=== PATIENT | female | born 1935 | race Caucasian/White ===

== ENCOUNTER 2017-06-04 13:57 | Inpatient (IN) | payer OTHER ==
[~2017-06-04] VITALS: Ht 160 cm; Wt 79.4 kg
[~2017-06-04 13:57] MED LIST: AMOXICILLIN500 M1 PO; NORVASC10 MG PO; ST. JOSEPH ASPI81 M1 PO; VOLTAREN GEL 1100 G2 TOP
[2017-06-04 14:06] VITALS: BP 133/69
[2017-06-04] MEDS ORDERED: DICLOFENAC SODI25 MG PO (14:10)
[2017-06-04] MEDS ORDERED: AVALIDE 150-121 EACH PO (14:11)
[2017-06-04 15:03] LABS: ABSOLUTE EOSINOPHILS 0.1 thou/uL (0.0-0.7); ABSOLUTE LYMPHOCYTES 2.4 thou/uL (0.8-5.3); ABSOLUTE MONOCYTES 1.3 thou/uL (0.0-1.2); ABSOLUTE NEUTROPHILS 8.6 thou/uL (1.6-8.1); BASOPHILS 0.4 %; EOSINOPHILS 1.2 %; HEMATOCRIT 39.1 % (37.0-47.0); HEMOGLOBIN 13.1 gm/dL (12.0-15.0); LYMPHOCYTES 19.1 %; MCH 32.9 pg (26.0-34.0); MCHC 33.6 g/dL (28.0-37.0); MONOCYTES 10.4 %; MPV 8.1 fl. (7.2-11.1); NUCLEATED RBCS 0 /100WBC; PLATELET COUNT* 386 thou/uL (150-400); POLYS 68.9 %; RBC 3.99 mil/uL (4.20-5.00); WBC 12.4 thou/uL (4.0-11.0)
[2017-06-04 15:08] LABS: ANION GAP 11 mmol/L (7-16); BUN 28 mg/dL (7-18); CALCIUM 9.8 mg/dL (8.5-10.1); CHLORIDE 95 mmol/L (98-107); CO2 24 mmol/L (21-32); CREATININE 1.1 mg/dL (0.6-1.3); GLUCOSE 172 mg/dL (70-99); POTASSIUM 3.6 mmol/L (3.5-5.1); SODIUM 130 mmol/L (136-145)
[2017-06-04 15:13] LABS: APTT 27.6 Seconds (25.0-31.3); INR 1.1; PROTIME 10.3 Seconds (9.20-11.50)
[2017-06-04 15:19] LABS: ALBUMIN 3.3 g/dL (3.4-5.0); ALKALINE PHOSPHATASE 49 U/L (46-116); LIPASE 187 U/L (73-393); NT-PRO BRAIN NAT PEPTIDE 74 pg/mL (<300); SGOT 17 U/L (15-37); SGPT 25 U/L (30-65); TOTAL BILIRUBIN 0.5 mg/dL (<0.1-1.0); TROPONIN-I LEVEL <0.06 ng/mL (<0.06)
--- NOTE | 2017-06-04 16:43 | EKG ---
[place] [address] ELECTROCARDIOGRAM REPORT Name: VIKAS CHRISTENSEN Room: [facility]#: [id number] Admission: 06/04/17 Attend Phys: Discharge: Date of : 37 Report #: [id number] THIS REPORT FOR: //name// [facility] ED Test Date: 2017-06-04 Test Time: 14:03:16 Pat Name: VIKAS CHRISTENSEN Department: Room: Gender: F Glass Glazier: : 1935 Requested By: Alexsandra Desai Order Number: [id number] MD: Jett Manning Measurements Intervals [place] Rate: 76 P: 21 ID: 140 QRS: -45 QRSD: 97 T: 34 QT: 435 QTc: 490 Interpretive Statements Sinus rhythm Left anterior fascicular block Low voltage, precordial leads RSR' in V1 or V2, right VCD or RVH Borderline prolonged QT interval No previous ECG available for comparison Electronically Signed On 06-04-2017 16:42:46 CDT by Jett Manning [email or web address] <ELECTRONICALLY SIGNED> By: Jett Manning MD, [facility] 06/04/17 5227 1403 1403 Jett Manning MD, [facility] /EPI
[2017-06-04 20:11] VITALS: BP 127/77
[2017-06-05] VITALS (30 sets, daily range): BP systolic 74–165; BP diastolic 42–85
[2017-06-05 01:23] LABS: BE -4.8 mmol/L (-2 to +3); HCO3 19.8 mmol/L (22.0-26.0); PCO2 35.5 mmHg (35.0-45.0); pH 7.365 (7.340-7.450)
[2017-06-05 01:25] LABS: PO2 135.5 mmHg (75.0-100.0)
[2017-06-05 07:42] LABS: HEMATOCRIT 34.2 % (37.0-47.0); HEMOGLOBIN 11.6 gm/dL (12.0-15.0); MCH 33.7 pg (26.0-34.0); MCV 99.2 fL (80.0-100.0); MPV 7.6 fl. (7.2-11.1); RBC 3.45 mil/uL (4.20-5.00); RDW-CV 13.9 % (10.5-14.5); WBC 11.2 thou/uL (4.0-11.0)
[2017-06-05 07:57] LABS: BE -2.9 mmol/L (-2 to +3); HCO3 20.6 mmol/L (22.0-26.0); PCO2 32.2 mmHg (35.0-45.0); PO2 75.9 mmHg (75.0-100.0); pH 7.424 (7.340-7.450)
[2017-06-05 08:15] LABS: ALBUMIN 2.2 g/dL (3.4-5.0); CREATININE 0.8 mg/dL (0.6-1.3); MAGNESIUM 1.6 mg/dL (1.8-2.4); PHOSPHORUS* 3.5 mg/dL (2.5-4.9); POTASSIUM 4.2 mmol/L (3.5-5.1); TOTAL BILIRUBIN 0.6 mg/dL (<0.1-1.0); TOTAL PROTEIN 4.8 g/dL (6.4-8.2)
[2017-06-05 08:17] LABS: CALCIUM 7.8 mg/dL (8.5-10.1)
[2017-06-05] MEDS ORDERED: ASPIR 8181 MG PO (08:44)
[2017-06-06] VITALS (19 sets, daily range): BP systolic 90–133; BP diastolic 49–78
[2017-06-06 03:03] LABS: HEMATOCRIT 37.8 % (37.0-47.0); HEMOGLOBIN 12.6 gm/dL (12.0-15.0); MCH 33.1 pg (26.0-34.0); MCHC 33.4 g/dL (28.0-37.0); NUCLEATED RBCS 0 /100WBC; RBC 3.81 mil/uL (4.20-5.00); RDW-CV 14.2 % (10.5-14.5); WBC 17.5 thou/uL (4.0-11.0)
[2017-06-06 03:05] LABS: PLATELET COUNT* 477 thou/uL (150-400)
[2017-06-06 03:08] LABS: PREALBUMIN 17.4 mg/dL (18.0-35.7)
[2017-06-06 03:14] LABS: ALBUMIN 2.1 g/dL (3.4-5.0); CREATININE 0.9 mg/dL (0.6-1.3); MAGNESIUM 1.7 mg/dL (1.8-2.4); POTASSIUM 3.4 mmol/L (3.5-5.1); TOTAL BILIRUBIN 0.7 mg/dL (<0.1-1.0); TOTAL PROTEIN 5.7 g/dL (6.4-8.2)
[2017-06-06 04:13] LABS: ABSOLUTE LYMPHOCYTES 1.8 thou/uL (0.8-5.3); ABSOLUTE MONOCYTES 0.9 thou/uL (0.0-1.2); ABSOLUTE NEUTROPHILS 14.9 thou/uL (1.6-8.1); PLATELET ESTIMATE INCREASED
[2017-06-06 04:18] LABS: BE -4.1 mmol/L (-2 to +3); HCO3 17.3 mmol/L (22.0-26.0); PCO2 23.1 mmHg (35.0-45.0); PO2 101.5 mmHg (75.0-100.0); pH 7.492 (7.340-7.450)
[2017-06-06 09:23] LABS: BE -3.2 mmol/L (-2 to +3); HCO3 21.1 mmol/L (22.0-26.0); PCO2 35.5 mmHg (35.0-45.0); PO2 81.6 mmHg (75.0-100.0); pH 7.392 (7.340-7.450)
--- NOTE | 2017-06-06 12:58 | CON ---
[address] [address] CONSULTATION Name: VIKAS CHRISTENSEN Room: [address] ADM IN M.R.#: [id number] Admission: 06/05/17 Attend Phys: Odette Pulliam Discharge: Date of : 37 Report #: [id number] THIS REPORT FOR: //name// CC: Riley Archer DATE OF SERVICE: 06/05/2017 ATTENDING PHYSICIAN: Leatha Archer MD REASON FOR EVALUATION: Recommendations for antimicrobial therapy in patient with a perforated duodenal ulcer complicated by multiorgan dysfunction, peritonitis. HISTORY OF PRESENT ILLNESS: Chart reviewed, patient examined. This 82-year-old with history of hypertension, fairly regular ethanol use, apparently presented to the Emergency Room with complaints of upper abdominal pain, became quite severe over the last hours prior to her admission and also complained of dyspnea. Evaluation including imaging, which showed pneumoperitoneum, large paraesophageal hernia and suspected duodenal perforation. This was confirmed at surgery. She underwent exploratory laparotomy, reduction of hiatal hernia, resection of gastric antrum with a Billroth II reconstruction and washout of the abdomen. She was left open as a wound VAC in place, 2 Len-Gonzalez drains. She is sedated, maintained on ventilatory support with some norepinephrine as well. She is tentatively scheduled to go back later today for primary closure. Empirically started on therapy with metronidazole, piperacillin/tazobactam and also on cefazolin as well. ALLERGIES: None known. CURRENT MEDICINES: Include enoxaparin, ipratropium and albuterol inhaler, fentanyl, norepinephrine, propofol, metronidazole, cefazolin, Zosyn. PAST MEDICAL HISTORY: As described above, history of arthritis, osteoporosis, previous bilateral knee replacement, hysterectomy. SOCIAL HISTORY: Former smoker. Regular ethanol use. FAMILY HISTORY: Noncontributory. REVIEW OF SYSTEMS: Not obtainable. PHYSICAL EXAMINATION: GENERAL: She is sedated and maintained on the vent in supine position, has multiple tubes and drains in place, appears somewhat chronically ill. VITAL SIGNS: Temperature 98.4, pulse 71, respirations 20, blood pressure 93/44. [place] [address] CONSULTATION Name: VIKAS CHRISTENSEN Room: [address] IN [facility].#: [id number] Admission: 06/05/17 Attend Phys: Odette Pulliam Discharge: Date of : 37 Report #: [id number] SKIN: Warm, dry, no rashes. NECK: Apparently supple. LUNGS: Diminished breath sounds. HEART: Regular. I do not appreciate any murmur. ABDOMEN: Distended, firm. Wound VAC in place, upper portion. Bilateral MARCELA drains. GENITOURINARY: Deferred. RECTAL: Deferred. LABORATORY DATA: Initial CBC: White count of 12.4, H and H 13.1 and 39.1, platelets of 386. Repeat this morning, white count 11.2, H and H 11.6 and 34.2, platelets of 270. PT of 10.3, INR of 1.1. Electrolytes: Sodium 130, potassium 3.6, chloride 95, bicarbonate is 24, anion gap of 11, BUN and creatinine 28 and 1.1, glucose of 172. LFTs unremarkable. Albumin 3.3, total protein 7.0. Estimated GFR of 48. Chest x-ray: Diaphragmatic hernia is noted, normal heart size, some basilar atelectasis on the left. CTA chest PE protocol: Free air in the upper abdomen, no evidence of PE. CT abdomen and pelvis confirmed noted large hiatal hernia. ABGs: A pH 7.365, pCO2 of 35.5, pO2 of 135.5, is on FiO2 of 100%. Cultures pending. Many wbc's, no organisms seen. ASSESSMENT: Peritonitis secondary to perforated duodenal ulcer with organ dysfunction. We will continue empiric therapy. I think we can pare down at this point. Thus with antibacterials, given a single dose fluconazole, pending the results. Noted plans to continue with additional therapy, likely will stay on the vent at least overnight. We will monitor expectantly, certainly at risk for infectious complication. <ELECTRONICALLY SIGNED> By: Gilmar Leonardo MD 06/06/17 1258 1558 1910Joabraham Leonardo MD /nt
[2017-06-07] VITALS (18 sets, daily range): BP systolic 79–116; BP diastolic 51–66
[2017-06-07 04:54] LABS: ABSOLUTE EOSINOPHILS 0.1 thou/uL (0.0-0.7); ABSOLUTE LYMPHOCYTES 0.8 thou/uL (0.8-5.3); ABSOLUTE MONOCYTES 1.2 thou/uL (0.0-1.2); ABSOLUTE NEUTROPHILS 10.7 thou/uL (1.6-8.1); BASOPHILS 0.2 %; EOSINOPHILS 0.7 %; HEMATOCRIT 29.3 % (37.0-47.0); LYMPHOCYTES 6.4 %; MCH 33.4 pg (26.0-34.0); MCHC 33.3 g/dL (28.0-37.0); MCV 100.3 fL (80.0-100.0); MONOCYTES 9.2 %; MPV 7.8 fl. (7.2-11.1); NUCLEATED RBCS 0 /100WBC; POLYS 83.5 %; RBC 2.92 mil/uL (4.20-5.00); RDW-CV 14.3 % (10.5-14.5); WBC 12.8 thou/uL (4.0-11.0)
[2017-06-07 04:55] LABS: HEMOGLOBIN 9.8 gm/dL (12.0-15.0); PLATELET COUNT* 296 thou/uL (150-400)
[2017-06-07 05:35] LABS: PREALBUMIN 13.6 mg/dL (18.0-35.7)
[2017-06-07 05:56] LABS: HCO3 23.1 mmol/L (22.0-26.0); PCO2 36.1 mmHg (35.0-45.0); pH 7.424 (7.340-7.450)
[2017-06-07 06:30] LABS: ALBUMIN 1.7 g/dL (3.4-5.0); CALCIUM 7.4 mg/dL (8.5-10.1); CREATININE 0.9 mg/dL (0.6-1.3); MAGNESIUM 1.8 mg/dL (1.8-2.4); PHOSPHORUS* 2.5 mg/dL (2.5-4.9); POTASSIUM 3.8 mmol/L (3.5-5.1); TOTAL BILIRUBIN 0.5 mg/dL (<0.1-1.0); TOTAL PROTEIN 4.5 g/dL (6.4-8.2)
--- NOTE | 2017-06-07 08:14 | CON ---
[address] [address] CONSULTATION Name: VIKAS CHRISTENSEN Room: [address] ADM IN M.R.#: [id number] Admission: 06/05/17 Attend Phys: Odette Pulliam Discharge: Date of : 37 Report #: [id number] THIS REPORT FOR: //name// CC: Riley Archer DATE OF SERVICE: 06/05/2017 REASON FOR CONSULTATION: Respiratory failure. HISTORY OF PRESENT ILLNESS: This is an 82-year-old female patient who was admitted through the Emergency Room on 06/04/2017 with a chief complaint of abdominal pain. The patient was intubated, on sedation, at the time of my evaluation, did not participate in the history, but I reviewed the medical records. Apparently, she reported abdominal pain and chest pain that started early on the day of hospitalization. The pain was radiating to her chest and according to the records, it was severe pain, never had it before, associated with decreased appetite for the last 1 week, although she did not have any vomiting, but she had some nausea and she takes diclofenac for arthritis. Also, there is reported increased alcohol intake, 3-4 alcoholic beverages per day. Her evaluation in the ER showed pneumoperitoneum. She was taken to the OR and actually was found to have perforated proximal large duodenal ulcer with reducible hiatal hernia and underwent exploratory laparotomy, reduction of the hernia, washout of the abdomen. She continues to be intubated and the plan is to take her back to the OR for further washout. She still has a wound VAC in place and she has drainage catheter in her abdomen. She is currently on propofol and fentanyl. However, she is being changed to Versed and fentanyl for sedation. ALLERGIES: Per record, no known drug allergies. HOME MEDICATIONS: She is on amlodipine, diclofenac and . SOCIAL HISTORY: Although she drinks alcohol daily 3-4 drinks per day, but she does not smoke, although she has a previous history of smoking. PAST MEDICAL HISTORY: Include hypertension and alcohol abuse. PAST SURGICAL HISTORY: Hysterectomy and total knee replacement. REVIEW OF SYSTEMS: At this point, not obtainable. She is intubated and sedated. PHYSICAL EXAMINATION: VITAL SIGNS: Her blood pressure 93/49, she is off vasopressors; [place] [address] CONSULTATION Name: VIKAS CHRISTENSEN Room: [address] IN [facility]#: [id number] Admission: 06/05/17 Attend Phys: Odette Pulliam Discharge: Date of : 37 Report #: [id number] rate 21; pulse rate of 75. She is afebrile. GENERAL: Intubated, sedated, although she is on sedation, but she opens her eyes when stimulated. Pupils equal, reactive to light. No jaundice. External ear looks healthy and normal. ORAL CAVITY: Moist mucous membrane with ET tube in place. NECK: Supple. Full range of movement she is moving her head. CHEST: Air movement heard bilaterally with some crackles at the bases. No definite wheezes. HEART: S1, S2; no murmur. ABDOMEN: Postoperative with a wound VAC, sluggish bowel sounds. Left lower quadrant drainage catheter. No masses felt. EXTREMITIES: Lower extremities, no edema noted. No calf tenderness. PSYCHIATRIC: Mood and affect could not be evaluated. LYMPHATICS: No palpable lymph node. SKIN: Normal for age and race. No rash. LABORATORY DATA: She has multiple imaging including CT of the chest and chest x-ray. The CT of the chest did show some atelectasis, possible lower lobe infiltrate with large hernia, and pneumoperitoneum. Her chest x-ray today showed the tube in good position with mild atelectasis. Her ABGs this morning was 7.42/32/75, this was on assist control ventilation. Her creatinine is 0.8, BUN of 17, chloride of 100, bicarb 26 and sodium 133. Her INR of 1.1. White blood count 12.4, hemoglobin 13.1, platelet of 386. IMPRESSION: 1. Acute respiratory failure, postop. 2. History of alcohol abuse. 3. Perforated peptic ulcer disease status post surgery. 4. Hypotension. 5. Pulmonary infiltrate, possible pneumonia. PLAN: At this point, we will continue the patient on the current vent settings. Her ABGs are acceptable. She will be on a scheduled nebulization treatment and we will do a followup ABG and chest x-ray. Antibiotic will be continued. It was noted ID were consulted for further management of antibiotics. She is planned for repeat OR today. We will keep her on the vent and depending on the course of the progression in the coming few days, we will decide regarding extubation process. She is on DVT prophylaxis and we will start her on thiamine for the alcohol abuse and watch for DTs. Discussed with the RN and RT. [address] [place] [address] CONSULTATION Name: VIKAS CHRISTENSEN Room: [address] IN [facility].#: [id number] Admission: 06/05/17 Attend Phys: Odette Pulliam Discharge: Date of : 37 Report #: [id number] Critical care time 35 minutes. <ELECTRONICALLY SIGNED> By: Mike Yu MD 06/07/17 0814 1012 [id number] Llamas MD /nt
[2017-06-08] VITALS (22 sets, daily range): BP systolic 82–1005; BP diastolic 47–77
[2017-06-08 07:09] LABS: ABSOLUTE LYMPHOCYTES 0.6 thou/uL (0.8-5.3); ABSOLUTE MONOCYTES 0.8 thou/uL (0.0-1.2); ABSOLUTE NEUTROPHILS 12.2 thou/uL (1.6-8.1); BASOPHILS 0.3 %; EOSINOPHILS 0.1 %; HEMATOCRIT 27.4 % (37.0-47.0); LYMPHOCYTES 4.7 %; MCH 33.3 pg (26.0-34.0); MCV 100.9 fL (80.0-100.0); MPV 8.1 fl. (7.2-11.1); NUCLEATED RBCS 0 /100WBC; PLATELET COUNT* 254 thou/uL (150-400); POLYS 88.9 %; RBC 2.71 mil/uL (4.20-5.00); RDW-CV 14.1 % (10.5-14.5); WBC 13.7 thou/uL (4.0-11.0)
[2017-06-08 07:21] LABS: ALBUMIN 1.6 g/dL (3.4-5.0); CALCIUM 7.3 mg/dL (8.5-10.1); CREATININE 0.8 mg/dL (0.6-1.3); POTASSIUM 3.6 mmol/L (3.5-5.1); TOTAL BILIRUBIN 0.4 mg/dL (<0.1-1.0); TOTAL PROTEIN 4.5 g/dL (6.4-8.2)
[2017-06-08 07:23] LABS: BE -5.2 mmol/L (-2 to +3); PCO2 32.4 mmHg (35.0-45.0); PO2 86.8 mmHg (75.0-100.0); pH 7.387 (7.340-7.450)
[2017-06-08 12:11] LABS: CALCIUM 7.6 mg/dL (8.5-10.1); CREATININE 0.7 mg/dL (0.6-1.3)
[2017-06-09] VITALS (22 sets, daily range): BP systolic 89–142; BP diastolic 51–79
[2017-06-09 02:48] LABS: HEMATOCRIT 29.6 % (37.0-47.0); HEMOGLOBIN 9.8 gm/dL (12.0-15.0); MCH 33.1 pg (26.0-34.0); MCV 100.4 fL (80.0-100.0); MPV 7.7 fl. (7.2-11.1); RBC 2.95 mil/uL (4.20-5.00); RDW-CV 14.1 % (10.5-14.5); WBC 15.7 thou/uL (4.0-11.0)
[2017-06-09 03:04] LABS: ALBUMIN 1.7 g/dL (3.4-5.0); CALCIUM 7.8 mg/dL (8.5-10.1); CREATININE 0.8 mg/dL (0.6-1.3); MAGNESIUM 2.4 mg/dL (1.8-2.4); POTASSIUM 4.2 mmol/L (3.5-5.1); TOTAL BILIRUBIN 0.3 mg/dL (<0.1-1.0); TOTAL PROTEIN 5.7 g/dL (6.4-8.2)
[2017-06-09 09:55] LABS: BE 0.3 mmol/L (-2 to +3); HCO3 23.8 mmol/L (22.0-26.0); PCO2 34.8 mmHg (35.0-45.0); PO2 81.4 mmHg (75.0-100.0); pH 7.453 (7.340-7.450)
[2017-06-10] VITALS (16 sets, daily range): BP systolic 103–151; BP diastolic 53–90
[2017-06-10 01:34] LABS: CREATININE 0.7 mg/dL (0.6-1.3); POTASSIUM 3.3 mmol/L (3.5-5.1)
[2017-06-10 01:50] LABS: CALCIUM 7.5 mg/dL (8.5-10.1); CREATININE 0.7 mg/dL (0.6-1.3); MAGNESIUM 1.9 mg/dL (1.8-2.4); POTASSIUM 3.4 mmol/L (3.5-5.1)
--- NOTE | 2017-06-10 08:49 | S ---
[place] [address] SURGICAL PATH RPT PROCEDURE Name: VIKAS HERNÁNDEZ Room: [address] ADM IN M.R.#: [id number] Admission: 06/05/17 Date of : 37 Discharge: Report #: [id number] Path Case #: [id number] PATHOLOGY REPORT COLLECTION DATE: 06/04/2017 RECEIVED DATE: 06/05/2017 SUBMITTING PHYS: Dr. Kaylan Rodriguez OTHER PHYS: Dr. Riley Desai Shanda SPECIMEN(S) RECEIVED: A.Pylorus B.Antrum * * * * * * * * * * * * FINAL DIAGNOSIS: A. Pylorus: - Segment of benign duodenum with mild nonspecific active inflammation and acute serositis, negative for granulomas and dysplasia. B. Antrum: - Segment of benign duodenum and gastric antrum with severe nonspecific chronic and active inflammation, ulceration and transmural perforation with fibrosis and acute serositis, negative for granulomas, Helicobacter pylori organisms and dysplasia. - See comment. COMMENT: The grossly suspected "possible mucosa" submitted as A2 represents necrotic vegetable material. The ulceration/perforation appears to primarily involve duodenal tissue. A properly-controlled H. pylori immunostain performed on B7 is negative. (LUIS:rusty; 06/07/2017) PATHOLOGIST: Miguel Cosby M.D. REPORT ELECTRONICALLY SIGNED BY: Miguel Cosby M.D. DATE/TIME: 06/10/2017 08:48 * * * * * * * * * * * * GROSS PATHOLOGY: A. The specimen is received in formalin labeled "Vikas Hernández pylorus". Received is a pouch-like segment of pink-leblanc, serosal-covered tissue measuring 1.8 x 1.5 x 1.5 cm in greatest dimensions. One margin is stapled and the opposite margin displays exposed light peres mucosa. Opening the specimen reveals light peres, smooth mucosa. The specimen is submitted entirely in cassette A1. Also received within the specimen [place] [address] SURGICAL PATH RPT PROCEDURE Name: VIKAS HERNÁNDEZ Room: [address] ADM IN ..#: [id number] Admission: 06/05/17 Date of : 37 Discharge: Report #: [id number] Path Case #: [id number] of glistening, leblanc-peres, possible mucosa measuring 3.1 x 1.7 x 0.3 cm in greatest dimensions. The specimen is serially sectioned and entirely submitted in cassette A2. B. The specimen is received in formalin labeled "Vikas Hernández antrum". Received is a pouch-like gastrectomy specimen measuring 9.5 x 6.4 x 3.5 cm in greatest dimensions with a stapled margin of resection. The serosal surface is pink-leblanc in appearance displaying a large circular perforation displaying exposed light peres to red-brown underlying mucosa measuring 3.5 x 2.0 cm, which is 6.2 cm from the stapled margin. Opening the specimen reveals pale peres, cerebriform-appearing mucosa with no additional nodules or lesions noted grossly. There is a slight amount of attached omentum measuring 5.3 x 3.2 x 1.0 cm in greatest dimensions displaying yellow-peres, lobulated cut surfaces with no grossly distinct nodules or lesions. The specimen is submitted representatively as follows: B1 residential sales representative sections through stapled margin B2-B6 residential sales representative sections through perforation B7 residential sales representative sections of uninvolved mucosa B8 residential sales representative section of attached omentum. A gross photograph is taken. (CAA; 06/06/2017) CLINICAL HISTORY: Pre-op diagnosis: Abdominal pain Post-op diagnosis: Perforated ulcer INITIAL CPT CODE(S): A; 66500 B; 99508, 38868 Professional services performed by [facility] [place] [address] Technical services performed by [facility] at [address] [place] [address], [address], [place] [address]. [facility] [address] [place] [address] PHONE: [phone] DIRECTOR: Navi Barrientos M.D. * * * END OF REPORT * * *
[2017-06-10 12:19] LABS: BE 1.2 mmol/L (-2 to +3); HCO3 24.6 mmol/L (22.0-26.0); PCO2 34.6 mmHg (35.0-45.0)
[2017-06-10 17:09] LABS: BE 3.8 mmol/L (-2 to +3); HCO3 27.1 mmol/L (22.0-26.0); PCO2 36.1 mmHg (35.0-45.0); PO2 89.2 mmHg (75.0-100.0); pH 7.493 (7.340-7.450)
[2017-06-11] VITALS (12 sets, daily range): BP systolic 119–159; BP diastolic 58–87
[2017-06-11 04:16] LABS: HEMOGLOBIN 9.4 gm/dL (12.0-15.0); MCH 33.1 pg (26.0-34.0); MCHC 33.8 g/dL (28.0-37.0); MCV 98.2 fL (80.0-100.0); MPV 7.8 fl. (7.2-11.1); RBC 2.85 mil/uL (4.20-5.00); RDW-CV 14.4 % (10.5-14.5); WBC 14.4 thou/uL (4.0-11.0)
[2017-06-11 04:22] LABS: CALCIUM 8.2 mg/dL (8.5-10.1); CREATININE 0.7 mg/dL (0.6-1.3)
[2017-06-11 04:35] LABS: POTASSIUM 2.9 mmol/L (3.5-5.1)
[2017-06-12] VITALS (14 sets, daily range): BP systolic 135–157; BP diastolic 74–96
[2017-06-12 04:14] LABS: HEMATOCRIT 27.8 % (37.0-47.0); HEMOGLOBIN 9.3 gm/dL (12.0-15.0); MCH 32.7 pg (26.0-34.0); MCHC 33.3 g/dL (28.0-37.0); MCV 98.2 fL (80.0-100.0); MPV 8.2 fl. (7.2-11.1); RBC 2.83 mil/uL (4.20-5.00); RDW-CV 14.3 % (10.5-14.5); WBC 18.5 thou/uL (4.0-11.0)
[2017-06-12 04:24] LABS: CALCIUM 8.5 mg/dL (8.5-10.1); CREATININE 0.7 mg/dL (0.6-1.3); MAGNESIUM 2.2 mg/dL (1.8-2.4); POTASSIUM 3.5 mmol/L (3.5-5.1)
[2017-06-12 14:38] LABS: BE 6.4 mmol/L (-2 to +3); HCO3 28.3 mmol/L (22.0-26.0); PCO2 31.2 mmHg (35.0-45.0); PO2 63.3 mmHg (75.0-100.0); pH 7.575 (7.340-7.450)
[2017-06-12 15:51] LABS: CALCIUM 8.7 mg/dL (8.5-10.1); CREATININE 0.8 mg/dL (0.6-1.3); POTASSIUM 3.2 mmol/L (3.5-5.1)
[2017-06-13] VITALS (18 sets, daily range): BP systolic 89–161; BP diastolic 51–101
[2017-06-13 05:47] LABS: HEMATOCRIT 28.4 % (37.0-47.0); HEMOGLOBIN 9.4 gm/dL (12.0-15.0); MCH 32.6 pg (26.0-34.0); MCHC 33.2 g/dL (28.0-37.0); MCV 98.1 fL (80.0-100.0); MPV 8.3 fl. (7.2-11.1); RBC 2.89 mil/uL (4.20-5.00); RDW-CV 14.2 % (10.5-14.5); WBC 18.4 thou/uL (4.0-11.0)
[2017-06-13 05:52] LABS: PLATELET COUNT* 453 thou/uL (150-400)
[2017-06-13 05:57] LABS: ALBUMIN 2.4 g/dL (3.4-5.0); CALCIUM 8.2 mg/dL (8.5-10.1); CREATININE 0.7 mg/dL (0.6-1.3); MAGNESIUM 2.3 mg/dL (1.8-2.4); PHOSPHORUS* 2.8 mg/dL (2.5-4.9); POTASSIUM 4.3 mmol/L (3.5-5.1); TOTAL BILIRUBIN 0.7 mg/dL (<0.1-1.0); TOTAL PROTEIN 5.8 g/dL (6.4-8.2)
[2017-06-13 12:15] LABS: ABSOLUTE LYMPHOCYTES 1.5 thou/uL (0.8-5.3); ABSOLUTE MONOCYTES 1.7 thou/uL (0.0-1.2); ABSOLUTE NEUTROPHILS 15.3 thou/uL (1.6-8.1); ANISOCYTOSIS 1+; PLATELET ESTIMATE INCREASED
[2017-06-13 12:16] LABS: POIKILOCYTOSIS 1+
[2017-06-13 18:46] LABS: URINE BILIRUBIN NEGATIVE (Negative); URINE BLOOD TRACE (Negative); URINE CLARITY CLEAR; URINE COLOR YELLOW; URINE GLUCOSE-RANDOM NEGATIVE (Negative); URINE KETONES NEGATIVE (Negative); URINE LEUKOCYTES-REFLEX NEGATIVE (Negative); URINE NITRITE-REFLEX NEGATIVE (Negative); URINE PROTEIN 2+ (Negative); URINE UROBILINOGEN 0.2 E.U./dl (0.2-1.0)
[2017-06-13 19:06] LABS: HYALINE CASTS 0-3 Few /LPF (None Seen); MUCUS None Seen strn/LPF (None Seen); SQUAMOUS 4-10 Moderate /LPF (0-3)
[2017-06-13 19:07] LABS: CRYSTALS None Seen /LPF (None Seen); URINE RBC 0-2 Rare /HPF (0-2); URINE WBC-REFLEX 0-5 Rare /HPF (0-5)
[2017-06-13 19:08] LABS: BACTERIA-REFLEX 1-9 Few /HPF (None Seen)
[2017-06-14] VITALS (19 sets, daily range): BP systolic 140–163; BP diastolic 83–98
[2017-06-14 08:12] LABS: HEMATOCRIT 29.9 % (37.0-47.0); HEMOGLOBIN 9.8 gm/dL (12.0-15.0); MCH 32.2 pg (26.0-34.0); MCHC 32.9 g/dL (28.0-37.0); MCV 97.9 fL (80.0-100.0); MPV 8.2 fl. (7.2-11.1); NUCLEATED RBCS 0 /100WBC; RBC 3.05 mil/uL (4.20-5.00); RDW-CV 14.4 % (10.5-14.5); WBC 19.4 thou/uL (4.0-11.0)
[2017-06-14 08:15] LABS: PLATELET COUNT* 532 thou/uL (150-400)
[2017-06-14 08:31] LABS: ALBUMIN 2.4 g/dL (3.4-5.0); CALCIUM 8.4 mg/dL (8.5-10.1); CREATININE 0.7 mg/dL (0.6-1.3); POTASSIUM 3.1 mmol/L (3.5-5.1); TOTAL BILIRUBIN 0.5 mg/dL (<0.1-1.0); TOTAL PROTEIN 6.7 g/dL (6.4-8.2)
[2017-06-14 08:46] LABS: ABSOLUTE BASOPHILS 0.4 thou/uL (0.0-0.2); ABSOLUTE LYMPHOCYTES 1.6 thou/uL (0.8-5.3); ABSOLUTE MONOCYTES 0.8 thou/uL (0.0-1.2); ABSOLUTE NEUTROPHILS 16.7 thou/uL (1.6-8.1); METAMYELOCYTES 1 %; PLATELET ESTIMATE ADEQUATE; POLYCHROMASIA 1+; TOXIC GRANULATION 2+
--- NOTE | 2017-06-14 15:13 | S ---
[address] [address] SURGICAL PATH RPT PROCEDURE Name: HERNÁNDEZVIKAS AMBER Room: [address] ADM IN M.R.#: [id number] Admission: 06/05/17 Date of : 37 Discharge: Report #: [id number] Path Case #: [id number] PATHOLOGY REPORT COLLECTION DATE: 06/13/2017 RECEIVED DATE: 06/13/2017 SUBMITTING PHYS: Dr. Val Narayan OTHER PHYS: Dr. Giana Rodriguez SPECIMEN(S) RECEIVED: A.Peripheral smear * * * * * * * * * * * * FINAL DIAGNOSIS: Peripheral blood smear: - Moderate normocytic to mildly macrocytic anemia, mild leukocytosis with mild left shift and mature monocytosis, and mild thrombocytosis. (see comment) (CLW:mee; 06/14/2017) COMMENT: Overall, the peripheral blood has moderate normocytic to mildly macrocytic anemia, mild leukocytosis with mild left shift and mild absolute mature monocytosis, and mild thrombocytosis. The etiology of the findings is unclear based entirely on slide review. The leukocytosis with mild left shift and mild mature monocytosis may be a reactive condition or a primary bone marrow disorder. Possible causes include infections, drug reactions, myeloproliferative disorders and mixed myeloproliferative / myelodysplastic diseases. No significant dyspoiesis, blasts, or Emma rods are identified on scanning. Macrocytic anemia can be seen in vitamin B12 and/or folate deficiency, liver and/or thyroid disease and primary bone marrow disorders. Normocytic anemia can be seen in anemia of chronic disease, treated and/or compensated vitamin and mineral deficiencies, blood loss and dilutional. The clinical significance of the mild thrombocytosis is unclear and could be related to inflammation, infection, hemolysis, connective tissue disease, bleeding and iron deficiency. Persistent thrombocytosis can be associated with myeloproliferative disorders. Correlation with clinical history and additional laboratory data is required. (CLW:mee; 06/14/2017) PATHOLOGIST: Mily Babin M.D. REPORT ELECTRONICALLY SIGNED BY: Mily Babin M.D. DATE/TIME: 06/14/2017 15:13 [place] [address] SURGICAL PATH RPT PROCEDURE Name: VIKAS HERNÁNDEZ Room: [address] IN [facility]#: [id number] Admission: 06/05/17 Date of : 37 Discharge: Report #: [id number] Path Case #: [id number] * * * * * * * * * * * * MICROSCOPIC DESCRIPTION: CBC Data (06/13/2017): WBC 18,400 /uL, RBC 2.89, hemoglobin 9.4 g/dL, hematocrit 28.4%, MCV 98.1 fL, MCH 32.6 pg, MCHC 33.2 g/dL, RDW 14.2%. Platelet count 453,000/uL. Manual white blood cell differential: segs 83%, lymphs 8%, and monos 9% Peripheral Blood Smear: Cytomorphological examination of the Ried's stained peripheral blood smear confirms the provided data. Red blood cells show moderate normocytic to mildly macrocytic anemia with no significant anisopoikilocytosis. No schistocytes or microspherocytes are seen. White blood cells are mildly increased in number. They are predominantly segmented neutrophils with mild reactive changes. While occasional cells have hypersegmented nuclei, there is no significant dyspoiesis noted. There is a mild left shift with rare myelocytes and metamyelocytes noted on scanning. No blasts or Emma rods are seen. Lymphocytes are predominantly small, round, and mature appearing with condensed chromatin and scant cytoplasm with admixed large granular lymphocytes. There is a mild mature monocytosis. Platelets are adequate (slightly increased) in number and mainly normal in morphology with rare larger platelets noted. (CLW:mee; 06/14/2017) GROSS PATHOLOGY: Received are four Reid's stained peripheral blood smears all labeled Vikas Hernández. CLINICAL HISTORY: 82-year-old woman with leukocytosis, anemia, and thrombocytosis. Morphologic review of the peripheral blood smear is requested by the patient's physician. INITIAL CPT CODE(S): A; NC Professional services performed by [facility] at [facility] [address], [place] [address] Technical services performed by [facility] at [address] [place] [address], [address], [place] [address]. [facility] [address] [place] [address] PHONE: [phone] DIRECTOR: Navi Barrientos M.D. * * * END OF REPORT * * *
[2017-06-15] VITALS (16 sets, daily range): BP systolic 129–166; BP diastolic 82–95
[2017-06-15 10:41] LABS: ABSOLUTE BASOPHILS 0.1 thou/uL (0.0-0.2); ABSOLUTE EOSINOPHILS 0.6 thou/uL (0.0-0.7); ABSOLUTE LYMPHOCYTES 1.1 thou/uL (0.8-5.3); ABSOLUTE MONOCYTES 1.5 thou/uL (0.0-1.2); ABSOLUTE NEUTROPHILS 16.6 thou/uL (1.6-8.1); BASOPHILS 0.4 %; EOSINOPHILS 2.9 %; HEMATOCRIT 30.3 % (37.0-47.0); HEMOGLOBIN 9.8 gm/dL (12.0-15.0); LYMPHOCYTES 5.5 %; MCH 32.6 pg (26.0-34.0); MCHC 32.2 g/dL (28.0-37.0); MCV 101.2 fL (80.0-100.0); MONOCYTES 7.7 %; MPV 8.9 fl. (7.2-11.1); NUCLEATED RBCS 0 /100WBC; PLATELET COUNT* 554 thou/uL (150-400); POLYS 83.5 %; RDW-CV 14.7 % (10.5-14.5); WBC 19.9 thou/uL (4.0-11.0)
[2017-06-15 10:44] LABS: CALCIUM 8.9 mg/dL (8.5-10.1); CREATININE 0.9 mg/dL (0.6-1.3)
[2017-06-15 10:48] LABS: POTASSIUM 4.1 mmol/L (3.5-5.1)
[2017-06-16] VITALS (18 sets, daily range): BP systolic 127–159; BP diastolic 67–96
[2017-06-16 03:50] LABS: ABSOLUTE LYMPHOCYTES 0.7 thou/uL (0.8-5.3); ABSOLUTE MONOCYTES 0.5 thou/uL (0.0-1.2); ABSOLUTE NEUTROPHILS 19.9 thou/uL (1.6-8.1); BASOPHILS 0.1 %; HEMATOCRIT 30.9 % (37.0-47.0); HEMOGLOBIN 9.9 gm/dL (12.0-15.0); LYMPHOCYTES 3.3 %; MCH 31.7 pg (26.0-34.0); MCHC 32.1 g/dL (28.0-37.0); MCV 98.8 fL (80.0-100.0); MONOCYTES 2.2 %; MPV 8.3 fl. (7.2-11.1); NUCLEATED RBCS 0 /100WBC; PLATELET COUNT* 577 thou/uL (150-400); POLYS 94.4 %; RBC 3.13 mil/uL (4.20-5.00); RDW-CV 14.8 % (10.5-14.5); WBC 21.1 thou/uL (4.0-11.0)
[2017-06-16 04:17] LABS: ALBUMIN 2.6 g/dL (3.4-5.0); CALCIUM 8.7 mg/dL (8.5-10.1); CREATININE 0.8 mg/dL (0.6-1.3); POTASSIUM 3.5 mmol/L (3.5-5.1); TOTAL BILIRUBIN 0.4 mg/dL (<0.1-1.0); TOTAL PROTEIN 6.7 g/dL (6.4-8.2)
[2017-06-16 13:15] LABS: HEMATOCRIT 30.9 % (37.0-47.0); HEMOGLOBIN 10.3 gm/dL (12.0-15.0); MCH 32.4 pg (26.0-34.0); MCHC 33.3 g/dL (28.0-37.0); MCV 97.4 fL (80.0-100.0); NUCLEATED RBCS 0 /100WBC; PLATELET COUNT* 631 thou/uL (150-400); RBC 3.17 mil/uL (4.20-5.00); RDW-CV 14.6 % (10.5-14.5)
[2017-06-16 13:22] LABS: CALCIUM 8.7 mg/dL (8.5-10.1)
[2017-06-16 13:36] LABS: ABSOLUTE NEUTROPHILS 30.9 thou/uL (1.6-8.1); ANISOCYTOSIS 1+; PLATELET ESTIMATE INCREASED
[2017-06-16 13:37] LABS: HYPOCHROMASIA Occasional; POIKILOCYTOSIS 1+
[2017-06-17] VITALS (15 sets, daily range): BP systolic 122–154; BP diastolic 60–87
[2017-06-17 04:19] LABS: ABSOLUTE BASOPHILS 0.1 thou/uL (0.0-0.2); ABSOLUTE EOSINOPHILS 0.2 thou/uL (0.0-0.7); ABSOLUTE LYMPHOCYTES 0.9 thou/uL (0.8-5.3); ABSOLUTE MONOCYTES 0.9 thou/uL (0.0-1.2); ABSOLUTE NEUTROPHILS 22.6 thou/uL (1.6-8.1); BASOPHILS 0.4 %; EOSINOPHILS 0.6 %; HEMATOCRIT 29.8 % (37.0-47.0); HEMOGLOBIN 9.7 gm/dL (12.0-15.0); LYMPHOCYTES 3.6 %; MCH 32.1 pg (26.0-34.0); MCHC 32.5 g/dL (28.0-37.0); MCV 98.8 fL (80.0-100.0); MONOCYTES 3.6 %; MPV 8.2 fl. (7.2-11.1); NUCLEATED RBCS 0 /100WBC; PLATELET COUNT* 608 thou/uL (150-400); POLYS 91.8 %; RBC 3.02 mil/uL (4.20-5.00); RDW-CV 14.8 % (10.5-14.5); WBC 24.6 thou/uL (4.0-11.0)
[2017-06-17 04:39] LABS: MAGNESIUM 2.1 mg/dL (1.8-2.4); PHOSPHORUS* 3.1 mg/dL (2.5-4.9); PREALBUMIN 15.6 mg/dL (18.0-35.7)
[2017-06-17 04:47] LABS: ALBUMIN 2.3 g/dL (3.4-5.0); CALCIUM 8.3 mg/dL (8.5-10.1); TOTAL BILIRUBIN 0.5 mg/dL (<0.1-1.0); TOTAL PROTEIN 6.2 g/dL (6.4-8.2)
[2017-06-17 04:53] LABS: POTASSIUM 4.2 mmol/L (3.5-5.1)
[2017-06-18] VITALS (11 sets, daily range): BP systolic 131–153; BP diastolic 73–93
[2017-06-18 04:54] LABS: ABSOLUTE BASOPHILS 0.1 thou/uL (0.0-0.2); ABSOLUTE EOSINOPHILS 0.3 thou/uL (0.0-0.7); ABSOLUTE LYMPHOCYTES 0.6 thou/uL (0.8-5.3); ABSOLUTE MONOCYTES 0.6 thou/uL (0.0-1.2); ABSOLUTE NEUTROPHILS 10.5 thou/uL (1.6-8.1); BASOPHILS 0.7 %; EOSINOPHILS 2.9 %; HEMATOCRIT 27.4 % (37.0-47.0); HEMOGLOBIN 9.1 gm/dL (12.0-15.0); LYMPHOCYTES 4.9 %; MCH 32.1 pg (26.0-34.0); MCHC 33.1 g/dL (28.0-37.0); MCV 97.2 fL (80.0-100.0); MONOCYTES 4.8 %; MPV 8.5 fl. (7.2-11.1); NUCLEATED RBCS 0 /100WBC; POLYS 86.7 %; RBC 2.82 mil/uL (4.20-5.00); RDW-CV 14.4 % (10.5-14.5); WBC 12.2 thou/uL (4.0-11.0)
[2017-06-18 05:01] LABS: PLATELET COUNT* 497 thou/uL (150-400)
[2017-06-18 05:17] LABS: CREATININE 0.9 mg/dL (0.6-1.3); MAGNESIUM 1.7 mg/dL (1.8-2.4); PHOSPHORUS* 2.8 mg/dL (2.5-4.9); POTASSIUM 3.2 mmol/L (3.5-5.1)
--- NOTE | 2017-06-18 16:30 | EKG ---
[place] [address] ELECTROCARDIOGRAM REPORT Name: VIKAS CHRISTENSEN Room: [address] ADM IN M.R.#: [id number] Admission: 06/05/17 Attend Phys: Odette Pulliam Discharge: Date of : 37 Report #: [id number] THIS REPORT FOR: //name// [facility] Test Date: 2017-06-18 Test Time: 14:13:44 Pat Name: VIKAS CHRISTENSEN Department: Room: [address] Gender: F Contact Center Consultant: : 1935 Requested By: Mike Yu Order Number: [id number] Reading MD: Jd Nugent Measurements Intervals [place] Rate: 84 P: 9 NV: 112 QRS: -32 QRSD: 77 T: -10 QT: 519 QTc: 614 Interpretive Statements Sinus rhythm Borderline short NV interval Left axis deviation Low voltage, precordial leads Abnormal R-wave progression, late transition Borderline T abnormalities, anterior leads Prolonged QT interval Compared to ECG 06/04/2017 14:03:16 Left-axis deviation now present T-wave abnormality now present Left anterior fascicular block no longer present Right ventricular hypertrophy no longer present Electronically Signed On 06-18-2017 16:30:42 CDT by Jd Nugent [email or web address] <ELECTRONICALLY SIGNED> By: Jd Nugent MD, [facility] 06/18/17 1630 1413 1413 Jd Nugent MD, [facility] /EPI
[2017-06-19] VITALS: BP 148/82
[2017-06-19 04:00] VITALS: BP 171/81
[2017-06-19 08:00] VITALS: BP 149/83
[2017-06-19 16:00] VITALS: BP 133/75
[2017-06-20] VITALS: BP 145/74
[2017-06-20 04:00] VITALS: BP 141/56
[2017-06-20 04:39] LABS: HEMOGLOBIN 8.9 gm/dL (12.0-15.0); MCH 31.7 pg (26.0-34.0); MCHC 32.9 g/dL (28.0-37.0); MCV 96.4 fL (80.0-100.0); RBC 2.8 mil/uL (4.20-5.00); RDW-CV 14.8 % (10.5-14.5)
[2017-06-20 04:50] LABS: INR 1.2
[2017-06-20 04:56] LABS: ALBUMIN 1.9 g/dL (3.4-5.0); CALCIUM 7.6 mg/dL (8.5-10.1); CREATININE 0.8 mg/dL (0.6-1.3); MAGNESIUM 1.6 mg/dL (1.8-2.4); POTASSIUM 3.3 mmol/L (3.5-5.1); TOTAL BILIRUBIN 0.4 mg/dL (<0.1-1.0); TOTAL PROTEIN 4.9 g/dL (6.4-8.2)
[2017-06-20 08:17] VITALS: BP 141/70
[2017-06-20 11:08] LABS: URINE BLOOD TRACE (Negative); URINE CLARITY CLEAR; URINE COLOR YELLOW; URINE GLUCOSE-RANDOM NEGATIVE (Negative); URINE KETONES 1+ (Negative); URINE LEUKOCYTES-REFLEX TRACE (Negative); URINE NITRITE-REFLEX NEGATIVE (Negative); URINE PROTEIN 1+ (Negative); URINE SPECIFIC GRAVITY 1.015 (1.005-1.030); URINE UROBILINOGEN 0.2 E.U./dl (0.2-1.0)
[2017-06-20 11:09] LABS: BACTERIA-REFLEX 1-9 Few /HPF (None Seen); CASTS None Seen /LPF (None Seen); CRYSTALS None Seen /LPF (None Seen); ICTOTEST (BILI CONFIRMATORY) Negative (Negative); MUCUS None Seen strn/LPF (None Seen); SQUAMOUS 4-10 Moderate /LPF (0-3); URINE BILIRUBIN 1+ (Negative); URINE RBC 3-10 Few /HPF (0-2); URINE WBC-REFLEX 0-5 Rare /HPF (0-5)
[2017-06-20 12:00] VITALS: BP 140/71
[2017-06-20 16:00] VITALS: BP 136/72
[2017-06-20 20:00] VITALS: BP 106/72
[2017-06-21] VITALS: BP 134/65
[2017-06-21 04:00] VITALS: BP 117/62
--- NOTE | 2017-06-21 05:48 | OP ---
[address] [address] OPERATIVE REPORT Name: VIKAS CHRISTENSEN Room: [address] IN .R.#: [id number] Admission: 06/05/17 Attend Phys: Odette Pulliam Discharge: Date of : 37 Report #: [id number] THIS REPORT FOR: //name// CC: Riley Archer DICTATED BY: Samm Plummer DO PREOPERATIVE DIAGNOSIS: Perforated duodenal ulcer, status post gastric antrum resection and Billroth II on 06/04/2017. POSTOPERATIVE DIAGNOSIS: Perforated duodenal ulcer, status post gastric antrum resection and Billroth II on 06/04/2017. SURGEON: Kaylan Rodriguez MD ENTRY LEVEL ADMINISTRATIVE ASSISTANT: Roger Plummer DO, PGY3. OPERATIONS PERFORMED: Exploratory laparotomy with placement of jejunostomy tube and washout of abdomen. Wound VAC placement and intraoperative esophagogastroduodenoscopy performed. ANESTHESIA TYPE: General. ESTIMATED BLOOD LOSS: 10 mL SPECIMENS REMOVED: None. COMPLICATIONS: None. DESCRIPTION OF PROCEDURE: After we had obtained the appropriate consents, we moved the patient from the ICU to the operating suite. She has remained intubated and sedated since her procedure that was performed on 06/05/2017. The patient was transferred to the bed and laid in the supine position. She had a previously placed ABThera wound VAC that was removed. She also had 2 MARCELA drains that were placed last night, which were placed at her sides on the bed. Her arms were placed out on arm boards. All lines were placed by Anesthesia. The patient's abdomen was then prepped and draped in a standard sterile fashion. A timeout was performed to correctly identify the patient and procedure. We started by removing the ABThera dressing to expose the abdominal cavity as well as the intra-abdominal cavity. On initial inspection, the bowel appeared to be very healthy in nature, pink and well perfused. We started by visualizing our anastomoses, which were performed last night during her initial procedure. The sutures that were placed last night appeared to be intact and in place. The bowel once again near the anastomosis sites was well perfused and appeared to be healthy. We then elected to perform an EGD. We introduced the EGD into the patient's mouth and followed it down guiding it into [place] [address] OPERATIVE REPORT Name: VIKAS CHRISTENSEN Room: [address] IN [facility].#: [id number] Admission: 06/05/17 Attend Phys: Odette Pulliam Discharge: Date of : 37 Report #: [id number] the NG tube that was currently in place into the stomach. Upon entry into the stomach, we were able to visualize the NG tube ending in the distal stomach. We also were able to visualize our staple lines, which appeared to be intact internally. We did insufflate the stomach to thoroughly check our staple lines, which appeared to remain intact. After we were satisfied with inspection of the stomach and a thorough investigation was performed, there did not appear to be any other suspicious areas. We withdrew the EGD scope removing the air from the stomach on the way out. After the EGD was complete, the patient was then given indocyanine green intravenously so that we could use the laparoscope to visualize perfusion at our anastomosis. There was good perfusion and adequate uptake of the indocyanine green. Once again, we were satisfied with our anastomosis sites and it was at that time, we decided to place a jejunostomy tube. We started by making our skin incision on the left lateral abdomen. Using hemostat, we bluntly entered the abdominal cavity. We then threaded our catheter into the abdominal cavity. Next, we made a small flores on the small intestines at the mid portion of the jejunum. Using a silk suture, we placed a pursestring suture at the entry site where we are planning to place a jejunostomy tube. We then made an enterotomy using electrocautery and blunt hemostat. The jejunostomy was then introduced into the jejunum and was threaded distally. The previously placed pursestring suture was then tied down around the jejunostomy tube. We then performed a Witzel procedure chastity take imbricating the small bowel over the jejunostomy tube using Lembert sutures. We placed several of these sutures approximately 2-3 mm apart. We also tacked the jejunum to the anterior abdominal wall at the site of the jejunostomy tube entry. The J-tube was then sutured into place using nylon suture on the skin. We then, using warm saline, washed the anterior abdominal cavity thoroughly using approximately 2 liters of saline. The fluid ran clear and we suctioned away the remaining fluid. We then closed the anterior abdominal wall fascia using a 0 PDS in a running fashion. We started superiorly and ran it inferiorly approximately half way of the incision. We then started inferiorly and ran the suture superiorly until we met our other previously placed suture. These two sutures were then tied down with good reapproximation of the fascia. The inferior aspect of the incision was closed using interrupted sutures using a nylon suture. The remainder of the incision was left open and a wound VAC was placed over this site. Wound VAC was then placed to suction with a very good seal. At the end of this procedure, counts were correct x 2. The patient was then transferred back to her ICU bed. She did remain stable throughout the procedure and tolerated it well. She will remain intubated and sedated for now. Dr. Rodriguez was present and scrubbed for the entirety of this procedure. <ELECTRONICALLY SIGNED> By: Kaylan Rodriguez MD 06/21/17 0548 26 Darcismael Rodriguez MD /nt
--- NOTE | 2017-06-21 05:48 | OP ---
[address] [address] OPERATIVE REPORT Name: VIKAS CHRISTENSEN Room: [address] IN .R.#: [id number] Admission: 06/05/17 Attend Phys: Odette Pulliam Discharge: Date of : 37 Report #: [id number] THIS REPORT FOR: //name// CC: Riley Archer DATE OF SERVICE: 06/04/2017 PREOPERATIVE DIAGNOSES: 1. Perforated pyloric ulcer. 2. Severe sepsis. 3. Peritonitis. 4. Giant paraesophageal hernia. 5. Hepatomegaly. POSTOPERATIVE DIAGNOSES: 1. Perforated pyloric ulcer. 2. Severe sepsis. 3. Peritonitis. 4. Giant paraesophageal hernia. 5. Hepatomegaly. PROCEDURES: 1. Exploratory laparotomy. 2. Reduction of paraesophageal hernia. 3. Billroth II-antrectomy with gastrojejunostomy--handsewn. 4. ABThera wound VAC placement. SPECIMENS: Antrum. COMPLICATIONS: None. DRAINS: 19-Indonesian MARCELA x 2. DESCRIPTION OF PROCEDURE: Full informed consent obtained preoperatively with the patient and her daughter. We discussed all risks, benefits and alternatives, specifically discussed severe sepsis and peritonitis and the patient's high likelihood for mortality with or without surgery. She understood all risks including bleeding, infection, reoperation, injury to surrounding structures, anastomotic leak, need for a stoma temporary or permanent, chronic pain, hernia, changes in enteric function and catastrophic complications up to including cardiopulmonary failure and . The patient understood and wished to proceed. She was taken to the operating room where prepped and draped in standard sterile fashion. Timeout performed with all in agreement. We began with midline laparotomy. Upon entering the abdomen, there [place] [address] OPERATIVE REPORT Name: VIKAS CHRISTENSEN Room: [address] IN [facility].#: [id number] Admission: 06/05/17 Attend Phys: Odette Pulliam Discharge: Date of : 37 Report #: [id number] of murky purulent fluid, some contents, potentially even food particles. We explored the abdomen, ran the bowel, saw no evidence of any distal injury. Turned our attention up towards the stomach. It appeared to be herniated into the chest. It was grasped with Babcocks and pulled down out of the chest. It went from a somewhat poorly perfused to demonstrate an excellent perfusion when reduced from the chest. After this gentle maneuver, it did seem to rest easily within the abdominal cavity. I next turned our attention to the pylorus. There was a near full-thickness transection at the level of the area just distal to the pylorus involving approximately 80% circumference of the bowel wall lumen. Given this, I did not believe it was amenable to a stitch repair or patching especially given the inflammatory nature surrounding the ulcer itself; therefore, I did choose to proceed with a pyloric resection, entering the lesser sac, sweeping away the omentum from the transverse colon. Transverse colon was placed distally, was able to enter the lesser sac and palpate the lesser omentum cranial to the stomach. A combination of cautery and LigaSure was used to take down this. The short gastrics were taken from the broad body of the stomach with the vessel sealer. I turned my attention to the antrum. There was actually firm fibrous adhesions here. It was taken slowly with cautery and a right angle. I was able to free up just distal to the ulcer with limited kocherization. The portal triad was noted to be distal to the point of the ulceration. Following this, the opening was grasped with Allis' and a blue 60 TA stapler was fired just distal (green staple load was not available during this case). Additional silk stitches placed at the distal proximal ends. After viewing the staple line, a second transection of the caudad tip of the staple line was transected with a second firing of the blue load TA given some injury from Allis clamp. This appeared to create a well perfused and viable staple line at the level of the proximal duodenum. I chose my proximal point of transection in the mid distal third of the stomach. This was transected with purple Endo-FABIENNE stapler to transect the stomach. Next, I ran a stitch of 3-0 Vicryl under the staple line and it appeared to be hemostatic, but well perfused. Staple loads were only fired after waiting a full minute with the stapler compressed. Next, I selected my point of jejunum for a Billroth II reconstruction. We went approximately 25 cm distal to the ligament of Treitz. A portion of small bowel was brought retrocolic up adjacent to the antimesenteric border of the greater curvature. We selected an area where the stomach and small intestine were noted to lay next to each other in a tension-free manner. I made enterotomies and a gastrotomy with cautery. I anchored the proximal and distal with 3-0 silk and placed interrupted 3-0 silk sutures long and serosal bites posteriorly at the opening of the common enterotomies. I anchored 3-0 Vicryl in the mid portion of the internal lumen and ran out in a simple manner to the corners and then using [place] stitches, closed the anterior inner portion of the gastrojejunostomy. Contents were milked up to this point. I saw no evidence of any leaking. Next, an additional anterior layer was created with interrupted 3-0 silk stitches. Anastomosis appeared to be well perfused and laid together tension free. I next used a stitch of 3-[address] a patch of omentum over the duodenal stump, [place] [address] OPERATIVE REPORT Name: VIKAS CHRISTENSEN Room: [address] IN [facility].#: [id number] Admission: 06/05/17 Attend Phys: Odette Pulliam Discharge: Date of : 37 Report #: [id number] it down gently without necrosing the omentum. Next, I irrigated copiously with several liters of warm normal saline. We palpated the colon and small intestine again, felt no clear abnormality. The only other finding noted on laparotomy was the very enlarged liver. The patient does have a history of known alcohol abuse. Given the patient's septic state and severe contamination during the procedure which was present preoperatively, I did choose to set her up for a take back to surgery on the following day. Therefore, an ABThera wound VAC was placed achieving good seal after placing 19-Indonesian JPs on either side of the abdomen near the duodenal stump and near the anastomosis. These were anchored in with 2-0 nylon. Sponge, needle, instrument counts were correct at the end of the case. The patient tolerated well. Again, postoperative plan is a second look tomorrow with an EGD to confirm integrity of the anastomosis and a second washout prior to fascial closure. <ELECTRONICALLY SIGNED> By: Kaylan Rodriguez MD 06/21/17 0548 [id number] 0041Ddaisy Rodriguez MD /nt
[2017-06-21 07:40] VITALS: BP 141/77
[2017-06-21 16:00] VITALS: BP 130/57
[2017-06-21 16:01] LABS: MAGNESIUM 1.8 mg/dL (1.8-2.4); POTASSIUM 3.4 mmol/L (3.5-5.1)
[2017-06-21 20:00] VITALS: BP 136/74
[2017-06-22 00:24] VITALS: BP 133/59
[2017-06-22 04:45] VITALS: BP 139/65
[2017-06-22 04:51] LABS: HEMATOCRIT 26.9 % (37.0-47.0); HEMOGLOBIN 9.2 gm/dL (12.0-15.0); MCH 32.4 pg (26.0-34.0); MCHC 34.4 g/dL (28.0-37.0); MCV 94.3 fL (80.0-100.0); MPV 8.1 fl. (7.2-11.1); RBC 2.85 mil/uL (4.20-5.00); RDW-CV 14.8 % (10.5-14.5); WBC 11.9 thou/uL (4.0-11.0)
[2017-06-22 05:10] LABS: ALBUMIN 1.9 g/dL (3.4-5.0); CALCIUM 8.1 mg/dL (8.5-10.1); CREATININE 0.8 mg/dL (0.6-1.3); MAGNESIUM 1.8 mg/dL (1.8-2.4); POTASSIUM 4.3 mmol/L (3.5-5.1); TOTAL BILIRUBIN 0.3 mg/dL (<0.1-1.0); TOTAL PROTEIN 5.6 g/dL (6.4-8.2)
[2017-06-22 08:10] VITALS: BP 139/71
[2017-06-22 12:00] VITALS: BP 129/78
[2017-06-22 16:00] VITALS: BP 146/77
[2017-06-22 20:00] VITALS: BP 148/83
[2017-06-23] VITALS (7 sets, daily range): BP systolic 127–141; BP diastolic 64–73
[2017-06-23 04:29] LABS: HEMATOCRIT 26.6 % (37.0-47.0); HEMOGLOBIN 9.1 gm/dL (12.0-15.0); MCH 32.2 pg (26.0-34.0); MCHC 34.1 g/dL (28.0-37.0); MCV 94.4 fL (80.0-100.0); MPV 8.2 fl. (7.2-11.1); RBC 2.82 mil/uL (4.20-5.00); RDW-CV 14.9 % (10.5-14.5); WBC 11.3 thou/uL (4.0-11.0)
[2017-06-23 04:41] LABS: CREATININE 0.8 mg/dL (0.6-1.3); MAGNESIUM 1.8 mg/dL (1.8-2.4); PHOSPHORUS* 2.4 mg/dL (2.5-4.9); POTASSIUM 4.3 mmol/L (3.5-5.1)
[2017-06-24 03:54] VITALS: BP 121/57
[2017-06-24 07:54] VITALS: BP 137/72
[2017-06-24 10:59] LABS: HEMATOCRIT 28.6 % (37.0-47.0); HEMOGLOBIN 9.4 gm/dL (12.0-15.0); MCH 31.1 pg (26.0-34.0); MCHC 32.9 g/dL (28.0-37.0); MCV 94.3 fL (80.0-100.0); MPV 7.8 fl. (7.2-11.1); NUCLEATED RBCS 0 /100WBC; PLATELET COUNT* 512 thou/uL (150-400); RBC 3.04 mil/uL (4.20-5.00); RDW-CV 15.1 % (10.5-14.5); WBC 15.3 thou/uL (4.0-11.0)
[2017-06-24 11:24] LABS: CALCIUM 7.9 mg/dL (8.5-10.1); CREATININE 0.8 mg/dL (0.6-1.3); POTASSIUM 3.8 mmol/L (3.5-5.1); TOTAL BILIRUBIN 0.4 mg/dL (<0.1-1.0); TOTAL PROTEIN 5.9 g/dL (6.4-8.2)
[2017-06-24 11:33] LABS: ABSOLUTE BASOPHILS 0.2 thou/uL (0.0-0.2); ABSOLUTE LYMPHOCYTES 0.9 thou/uL (0.8-5.3); ABSOLUTE MONOCYTES 0.2 thou/uL (0.0-1.2); ABSOLUTE NEUTROPHILS 14.1 thou/uL (1.6-8.1); METAMYELOCYTES 1 %; PLATELET ESTIMATE ADEQUATE
[2017-06-24 11:57] VITALS: BP 108/84
[2017-06-24 16:00] VITALS: BP 128/68
[2017-06-24 23:42] VITALS: BP 139/80
[2017-06-25 03:43] VITALS: BP 155/62
[2017-06-25 04:45] LABS: ABSOLUTE BASOPHILS 0.1 thou/uL (0.0-0.2); ABSOLUTE EOSINOPHILS 0.2 thou/uL (0.0-0.7); ABSOLUTE MONOCYTES 1.2 thou/uL (0.0-1.2); ABSOLUTE NEUTROPHILS 10.2 thou/uL (1.6-8.1); BASOPHILS 0.6 %; EOSINOPHILS 1.9 %; HEMATOCRIT 27.9 % (37.0-47.0); HEMOGLOBIN 9.2 gm/dL (12.0-15.0); LYMPHOCYTES 7.5 %; MCH 31.2 pg (26.0-34.0); MCV 94.5 fL (80.0-100.0); MONOCYTES 9.4 %; MPV 7.9 fl. (7.2-11.1); NUCLEATED RBCS 0 /100WBC; PLATELET COUNT* 456 thou/uL (150-400); POLYS 80.6 %; RBC 2.95 mil/uL (4.20-5.00); RDW-CV 14.9 % (10.5-14.5); WBC 12.7 thou/uL (4.0-11.0)
[2017-06-25 05:21] LABS: ALBUMIN 1.8 g/dL (3.4-5.0); CALCIUM 7.6 mg/dL (8.5-10.1); CREATININE 0.7 mg/dL (0.6-1.3); POTASSIUM 3.6 mmol/L (3.5-5.1); TOTAL BILIRUBIN 0.3 mg/dL (<0.1-1.0); TOTAL PROTEIN 5.5 g/dL (6.4-8.2)
[2017-06-25 07:45] VITALS: BP 136/58
[2017-06-25 11:35] VITALS: BP 129/65
[2017-06-25 17:13] VITALS: BP 124/64
[2017-06-25 20:00] VITALS: BP 124/70
[2017-06-25 23:55] VITALS: BP 139/63
[2017-06-26 04:00] VITALS: BP 138/75
[2017-06-26 08:00] VITALS: BP 144/78
[2017-06-26 11:22] VITALS: BP 145/59
[2017-06-26] MEDS ORDERED: TESSALON PERLE100 MG PO (13:37)
[2017-06-26] MEDS ORDERED: TYLENOL325 MG PO (13:38)
[2017-06-26] MEDS ORDERED: VANCOCIN 125 M125 M1 PO (13:40)
[2017-06-26] MEDS ORDERED: ONDANSETRON HCL4 M2 PO (13:43)
[2017-06-26] MEDS ORDERED: PROTONIX40 M1 PO (13:45)
[2017-06-26] MEDS ORDERED: LOVENOX40 MG/0.4 SUBQ (13:45)
[2017-06-26] MEDS ORDERED: REMERON15 MG PO (13:46)
[2017-06-26] MEDS ORDERED: FEVERALL650 MG RECTAL (13:47)
[2017-06-26] MEDS ORDERED: ARTIFICIAL TEAR15 M1 OPHTHALMIC (13:50)
[2017-06-26] MEDS ORDERED: DUONEB 2.5-0.5 M3 ML INH (13:52)
[2017-06-26] MEDS ORDERED: FLORANEX TABLE1 EACH PO (13:53)
[2017-06-26 14:38] VITALS: BP 139/82
== END 2017-06-26 15:26 | DRG 853 ==
LOC: M.ERS 13:57 → M.SUR 13:57 → M.ERS 16:55 → M.TBA-ER 16:55 → M.ERS 17:41 → M.SUR 20:11 → M.TBA-ER 06-05 00:09 → M.ICU 06-05 00:09 → M.2W 06-18 22:25
PROVIDERS: Internal Medicine; Internal Medicine Pulmonary Disease; Personal Emergency Response Attendant; Specialist; Surgery; ADMIT Internal Medicine
DX: A41.9 Sepsis, unspecified organism (principal); K26.5 Chronic or unspecified duodenal ulcer with perforation; J69.0 Pneumonitis due to inhalation of food and vomit; R65.21 Severe sepsis with septic shock; G93.40 Encephalopathy, unspecified; E43 Unspecified severe protein-calorie malnutrition; K65.0 Generalized (acute) peritonitis; J96.21 Acute and chronic respiratory failure with hypoxia; J98.11 Atelectasis; A04.72 Enterocolitis due to Clostridium difficile, not specified as recurrent; E87.0 Hyperosmolality and hypernatremia; M81.0 Age-related osteoporosis without current pathological fracture; I10 Essential (primary) hypertension; Z96.653 Presence of artificial knee joint, bilateral; M19.90 Unspecified osteoarthritis, unspecified site; K44.9 Diaphragmatic hernia without obstruction or gangrene; R16.0 Hepatomegaly, not elsewhere classified; Z79.899 Other long term (current) drug therapy; Z90.710 Acquired absence of both cervix and uterus; Z87.891 Personal history of nicotine dependence

== ENCOUNTER → 2017-08-27 | Outpatient (CLI) | payer OTHER ==
[~2017-08-27] MED LIST changes: +ARTIFICIAL TEAR15 M1 OPHTHALMIC; +ASPIR 8181 MG PO; +AVALIDE 150-121 EACH PO; +DICLOFENAC SODI25 MG PO; +DUONEB 2.5-0.5 M3 ML INH; +FEVERALL650 MG RECTAL; +FLORANEX TABLE1 EACH PO; +LOVENOX40 MG/0.4 SUBQ; +ONDANSETRON HCL4 M2 PO; +PROTONIX40 M1 PO; +REMERON15 MG PO; +TESSALON PERLE100 MG PO; +TYLENOL325 MG PO; +VANCOCIN 125 M125 M1 PO
== END ==
LOC: M.CT 06:45 → M.LAB 07:00 → M.CT 08:00
PROVIDERS: Surgery
DX: I77.819 Aortic ectasia, unspecified site (principal); K44.9 Diaphragmatic hernia without obstruction or gangrene; K26.5 Chronic or unspecified duodenal ulcer with perforation

== ENCOUNTER → 2020-08-31 | Outpatient (CLI) | payer OTHER | LOC: M.RAD 07-19 11:53 | PROVIDERS: ATTEND Internal Medicine | DX: Z12.31 Encounter for screening mammogram for malignant neoplasm of breast (principal); M81.0 Age-related osteoporosis without current pathological fracture; N63.10 Unspecified lump in the right breast, unspecified quadrant; N63.20 Unspecified lump in the left breast, unspecified quadrant; M85.88 Other specified disorders of bone density and structure, other site; Z78.0 Asymptomatic menopausal state ==

== ENCOUNTER → 2021-01-16 | Outpatient (CLI) | payer OTHER | LOC: M.RAD 13:54 | PROVIDERS: ATTEND Internal Medicine | DX: I10 Essential (primary) hypertension (principal); K44.9 Diaphragmatic hernia without obstruction or gangrene; M40.294 Other kyphosis, thoracic region; R00.0 Tachycardia, unspecified ==

== ENCOUNTER → 2021-03-07 | Outpatient (CLI) | payer OTHER | LOC: M.RAD 02-28 13:00 | PROVIDERS: ATTEND Internal Medicine | DX: R92.8 Other abnormal and inconclusive findings on diagnostic imaging of breast (principal) ==

== ENCOUNTER → 2021-03-09 | Outpatient (CLI) | payer OTHER ==
--- NOTE | 2021-03-14 15:07 | PATH ---
[address] [address] PATHOLOGY RPT PROCEDURE Name: VIKAS HERNÁNDEZ Room: [facility] JANA Molina#: [id number] Admission: 03/09/21 Date of : 37 Discharge: Report #: [id number] Path Case #: [id number] [facility] Accession Number: [id number] . 01 Material submitted: . breast - LEFT BREAST CALCIFICATIONS. Modifiers: left . 01 Clinical history: . STEREOTACTIC BIOPSY . 02 Diagnosis: Left breast calcifications, stereotactic biopsy: - Fibroadenoma/fibroadenomatosis with stromal fibrosis and coarse calcifications and benign breast tissue with fresh hemorrhage and luminal calcifications, negative for atypia. See comment. (LUIS:zainab; 03/13/2021) MBR 03/13/2021 1124 Local . 02 Comment: Reviewed with Dr. Navi Barrientos on 03/13/2021 who agrees with the diagnosis. (LUIS:vending machine mechanic; 03/13/2021) . 02 Electronically signed: . Miguel Cosby MD, Pathologist NPI- [id number] . 01 Gross description: . The specimen is received in formalin, labeled "Vikas Hernández, left breast calcifications". Received are multiple needle cores of fibrofatty tissue measuring 2.6 x 2.0 x 0.4 cm in aggregate dimensions. The specimen is submitted entirely in cassettes A1 through A3. The cold ischemic time is 5 minutes. The total formalin fixation time is 31 hours and 45 minutes. (CAA; 03/10/2021) QAC/QAC 03/10/2021 0916 Local . 02 Pathologist provided ICD-10: D24.2 . 02 CPT . 209101 Specimen Comment: A courtesy copy of this report has been sent to [phone], [phone] Specimen Comment: [phone] Specimen Comment: Report sent to / DR DEL ROSARIO Specimen Comment: A duplicate report has been generated due to demographic updates. Performed at: [address] [place] [address] PATHOLOGY RPT PROCEDURE Name: VIKAS HERNÁNDEZ Room: [facility] JANA Molina#: [id number] Admission: 03/09/21 Date of : 37 Discharge: Report #: [id number] Path Case #: [id number] [facility] [address], [place], [place] [id number] MD Osei Nguyen MD Phone: [phone] Performed at: 02 [facility] [address], [place], [place] [id number] MD Miguel Cosby MD Phone: [phone]
== END | disposition home or self-care (01) ==
LOC: M.RAD 10:18
PROVIDERS: ATTEND Internal Medicine
DX: R92.8 Other abnormal and inconclusive findings on diagnostic imaging of breast (principal); D24.2 Benign neoplasm of left breast; N60.32 Fibrosclerosis of left breast; Z98.890 Other specified postprocedural states; Z79.899 Other long term (current) drug therapy